=== PATIENT | female | born 1970 | race Caucasian/White ===

== ENCOUNTER 2022-01-25 12:48 | Outpatient (CLI) | payer OTHER | END 2022-01-25 12:49 | disposition home or self-care (01) | LOC: CSHMAMMO 12:48 | PROVIDERS: ATTEND Family Medicine | DX: Z12.31 Encounter for screening mammogram for malignant neoplasm of breast (principal); Z80.3 Family history of malignant neoplasm of breast; Z98.82 Breast implant status | CPT/HCPCS: 77063; 77067 ==